=== PATIENT | female | born 1955 | race Caucasian/White ===

== ENCOUNTER 2016-12-08 13:00 | Emergency (ER) | payer MEDICARE, BC ==
[~2016-12-08 13:00] MED LIST: ALBUTEROL SULF8.5 G1 IH; AMLODIPINE BESY10 MG PO; ARAVA20 MG PO; ASPIR 8181 MG PO; ASPIRIN325 MG PO; ATORVASTATIN CA40 MG PO; BYSTOLIC5 MG PO; CELEBREX200 MG PO; CO Q-10100 M1 PO; CODEINE SULFATE30 MG PO; FENOFIBRATE54 MG PO; FLONASE16 G1; GABAPENTIN100 MG PO; GABAPENTIN600 MG PO; GLUCOPHAGE XR500 MG PO; GLUCOPHAGE500 MG PO; LASIX20 MG PO; LEVOTHYROXINE175 MCG PO; LIPITOR40 MG PO; LISINOPRIL20 MG PO; MINOCYCLINE HC100 MG PO; NEXIUM40 MG PO; NORCO 7.5/325 T1 TAB PO; PERCOCET 7.5-31 EACH PO; PREDNISONE5 MG PO; PROBIOTIC1 EAC4 PO; VITAMIN D 22000 UNIT PO; [UNRECOGNIZED DRUG - CODE] PO
== END 2016-12-08 13:28 | disposition left against medical advice (07) ==
LOC: EDMED 13:00
DX: Z53.21 Procedure and treatment not carried out due to patient leaving prior to being seen by health care provider (principal)